=== PATIENT | female | born 1960 | race Caucasian/White ===

== ENCOUNTER 2020-03-26 11:15 | Outpatient (CLI) | payer OTHER ==
[~2020-03-26] VITALS: Ht 167.6 cm; Wt 102.7 kg
[2020-03-26] VITALS (9 sets, daily range): BP systolic 105–115; BP diastolic 40–53; PULSE 82–88; TEMP 99.2
[~2020-03-26 11:15] MED LIST changes: -PROVENTIL0.09 MG/A1 IH
[2020-03-26] MEDS ORDERED: PROVENTIL0.09 MG/A1 IH (11:20)
== END 2020-03-26 13:30 | disposition home or self-care (01) ==
LOC: EUO 11:15
DX: U07.1 COVID-19 (principal)
CPT/HCPCS: J7050

== ENCOUNTER → 2020-03-26 | Outpatient (REF) ==
[~2020-03-26] MED LIST: NORCO 325 MG-7.1 TAB PO; PROVENTIL0.09 MG/A1 IH; ZOLOFT 50MG50 MG PO
== END ==
LOC: ZLAB.WCH 09:45
DX: Z01.89 Encounter for other specified special examinations (principal)